=== PATIENT | male | born 1965 | race Caucasian/White ===

== ENCOUNTER 2017-12-13 22:55 | Emergency (ER) | payer BC ==
[2017-12-13 23:24] VITALS: BP 151/94
--- NOTE | 2017-12-13 23:45 | RADIOLOGY REPORT (SQ) ---
EXAM DESCRIPTION: XR SHOULDER 2 OR MORE VIEWS CLINICAL HISTORY: 52 years Male, shoulder injury COMPARISON: None. Findings: Mild osteoarthritis. Bones, joints, and soft tissues of the XR RIGHT SHOULDER 3 VIEWS appear otherwise intact. IMPRESSION: No acute findings.
--- NOTE | 2017-12-13 23:45 | RADIOLOGY REPORT (SQ) ---
EXAM DESCRIPTION: XR HUMERUS CLINICAL HISTORY: 52 years Male, fell down stairs pain COMPARISON: None. Findings: Mild osteoarthritis of the right shoulder.. Bones, joints, and soft tissues of the XR RIGHT HUMERUS appear otherwise intact. IMPRESSION: No acute findings.
[2017-12-14] MEDS ORDERED: HYDROCODONE/ACETAMINOPHEN 5-325 MG TABLET PO ONE (00:35)
[2017-12-14] MEDS ORDERED: HYDROCODONE/ACETAMINOPHEN 5-325 MG (6 TAB/ER DISP) PO PRN (00:37)
[2017-12-14] MEDS ORDERED: IBUPROFEN 800 MG TABLET PO ONE (00:37)
--- NOTE | 2017-12-14 00:43 | ER Document Report ---
ED Extremity Problem, Upper - General Chief Complaint: Shoulder Injury Stated Complaint: SHOULDER INJURY Time Seen by Provider: 12/14/17 00:16 Mode of Arrival: Ambulatory Information source: Patient Notes: Patient is a 52-year-old male who presents with right shoulder pain. Patient reports that he tripped and fell forward and hit his right shoulder into a wall. Patient states that he felt a pop. Patient states that he had a ligament tear in the past to the opposing shoulder and he states this feels similar. There is no obvious dislocation however patient does appear to be guarding the area. TRAVEL OUTSIDE OF THE [place] IN LAST 30 DAYS: No - Related Data Allergies/Adverse Reactions: No Known Allergies Allergy (Verified 12/13/17 22:59) Past Medical History - General Information source: Patient - Social History Smoking Status: Never Smoker Chew tobacco use (# tins/day): Yes Frequency of alcohol use: Rare Drug Abuse: None Lives with: Spouse/Significant other Family History: Reviewed & Not Pertinent Patient has suicidal ideation: No Patient has homicidal ideation: No - Medical History Medical History: Negative Renal/ Medical History: Denies: Hx Peritoneal Dialysis Surgical Hx: Negative Review of Systems - Review of Systems Constitutional: No symptoms reported EENT: No symptoms reported Cardiovascular: No symptoms reported Respiratory: No symptoms reported Gastrointestinal: No symptoms reported Genitourinary: No symptoms reported Male Genitourinary: No symptoms reported Musculoskeletal: See HPI Skin: No symptoms reported Hematologic/Lymphatic: No symptoms reported Neurological/Psychological: No symptoms reported Physical Exam - Vital signs Vitals: Temp Pulse Resp BP Pulse Ox 98.7 F 63 20 151/94 H 98 12/13/17 23:22 12/13/17 23:22 12/13/17 23:22 12/13/17 23:22 12/13/17 23:22 - Notes Notes: PHYSICAL EXAMINATION: GENERAL: Well-appearing, well-nourished and in no acute distress. HEAD: Atraumatic, normocephalic. EYES: Pupils equal round and reactive to light, extraocular movements intact, sclera anicteric, conjunctiva are normal. ENT: Nares patent, oropharynx clear without exudates. Moist mucous membranes. NECK: Normal range of motion, supple without lymphadenopathy LUNGS: Breath sounds clear to auscultation bilaterally and equal. No wheezes rales or rhonchi. HEART: Regular rate and rhythm without murmurs ABDOMEN: Soft, nontender, nondistended abdomen. No guarding, no rebound. No masses appreciated. Musculoskeletal: Limited range of motion to right shoulder, no pitting or edema , no deformity, no eccymosis, mild swelling. No cyanosis. NEUROLOGICAL: Cranial nerves grossly intact. Normal speech, normal gait. Normal sensory, motor exams PSYCH: Normal mood, normal affect. SKIN: Warm, Dry, normal turgor, no rashes or lesions noted. Course - Re-evaluation Re-evalutation: X-ray of the right shoulder is negative for any dislocation, humerus x-ray is negative for any fracture. Patient has no neurovascular compromise. Radial and ulnar pulses are present, strength is equal bilaterally, sensation is equal bilaterally. Will place patient in arm sling pain medication and anti- inflammatories. Patient is from out of town and already has an or so that he can follow up with next week. Will provide patient with a local orthopedic contact in case he needs it. - Vital Signs Vital signs: Temp Pulse Resp BP Pulse Ox 98.7 F 63 20 151/94 H 98 12/13/17 23:22 12/13/17 23:22 12/13/17 23:22 12/13/17 23:22 12/13/17 23:22 Discharge - Discharge Clinical Impression: Shoulder injury Qualifiers: Encounter type: initial encounter Laterality: right Qualified Code(s): S49.91XA - Unspecified injury of right shoulder and upper arm, initial encounter Condition: Stable Disposition: HOME, SELF-CARE Additional Instructions: Shoulder Injury You have injured your shoulder. This usually results from stretching or tearing of the tendons during trauma. Time and protection are required in order to heal properly. Many injuries are quite disabling, and should be taken seriously. Initial treatment includes cold packs and a sling to rest the shoulder. The physician has assessed the seriousness of your injury, and has outlined a treatment plan. Understand that this treatment may change, depending on how you progress. If a re-examination was recommended, it is important that you follow up as instructed. Some shoulder injuries (such as partial tear of the rotator cuff) are only suspected after you've failed to improve. Sling as Treatment A sling has been applied to protect the injury. This is adequate immobilization for this type of injury -- no cast or brace is required. Keep the sling on at all times until instructed to remove it by the doctor. Even though no cast or splint is needed, you must use the sling. If you use the arm too soon, it may not heal properly! If necessary, the sling can be adjusted for comfort. Return if you are encountering problems with the sling. Oral Narcotic Medication You have been given a dispense pack of hydrocodone for pain control. This medication is a narcotic. It's best taken with food, as nausea can result if taken on an empty stomach. Don't operate machinery or drive within six hours of taking this medication. Do not combine this medicine with alcohol, or with any medication which can cause sedation (such as cold tablets or sleeping pills) unless you get permission from the physician. Narcotics tend to cause constipation. If possible, drink plenty of fluids and eat a diet high in fiber and fruits. Return if you develop severe pain, numbness, weakness or loss of function in the right arm. Follow up with orthopaedics in your home town when you return next week bring the radiology disk that I am providing you. I have provided you with information of an orthopedic here in [place] in case you need one while you are still in town. Referrals: FRANCISCO ISSA MD [ACTIVE STAFF] - Follow up as needed
== END 2017-12-14 01:05 | disposition home or self-care (01) ==
LOC: ER 22:55
DX: S49.91XA Unspecified injury of right shoulder and upper arm, initial encounter (principal); M25.511 Pain in right shoulder; W01.198A Fall on same level from slipping, tripping and stumbling with subsequent striking against other object, initial encounter
CPT/HCPCS: 99283